=== PATIENT | female | born 1985 | race Caucasian/White ===

== ENCOUNTER 2017-01-11 10:41 | Outpatient (CLI) | payer MEDICAID ==
[~2017-01-11] VITALS: Ht 162.6 cm; Wt 57.3 kg
[2017-01-11 10:47] VITALS: BP 106/65; PULSE 84; RESP 16; Ht 162.6 cm; Wt 57.3 kg
--- NOTE | 2017-01-11 13:19 | CONS ---
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 She also has a small area of chronic mass in the right axillary region. Both of these areas appear to be benign to my examination and her history is relatively void of any concerning features. She is at relatively low risk for malignancy given her age and she also performs her own breast exams routinely and she does not report any abnormality in her own breast. Note that I deferred breast exam during this visit. I reviewed the wide differential of posterior neck masses and given the ultrasound findings, I believe that the next step in workup would be a CT scan of the neck and chest area with contrast. This would give us a good view of the area of the mass as well as evaluation of the right axilla. Should this poses any questions or concerning features, then the next step would be a fine needle aspiration of the area. We will order those in sequence and as needed. I plan on having the patient visit with us again after the above is done. I answered all the patient's questions to the best of my ability and I believe that she understood and wished to proceed with the plan. With above assessment I have recommended the followin. CT of the neck to include the upper chest area to evaluate both the right posterior neck mass as well as the right axillary mass. 2. Possible need for fine needle aspiration under ultrasound of the right posterior neck mass or the right axillary mass or both. 3. Follow up with us after above. 4. Follow up with primary care physician. Thank you again for allowing us to participate in the care of this very pleasant lady and I am certain her wonderful family. If there are any questions , please feel free to contact me at [phone]. UPDATED CLINICAL SUMMARY: A very pleasant and otherwise healthy 31-year-old young lady presenting with a small 3 x 6 x 10 mm subcutaneous hypoechoic nodule in the posterior right neck as seen on ultrasound of soft tissue of the neck done on 12/28/2016 with recent history of droopiness of the left face around the same time without associated fevers or chills, diagnosed as possible herpes type infection. COMORBIDITIES: 1. Recent herpes type droopiness of the left face diagnosed in the emergency department. 2. Right axillary lymph node enlargement that has been chronic. 3. Mild hypercholesterolemia (217 mg/dL on 01/04/2017). HISTORY OF PRESENT ILLNESS: The patient is a very pleasant and otherwise healthy 31-year-old lady with the above-mentioned comorbidities whom we were kindly asked to consult regarding management of her right posterior neck subcutaneous mass. Patient noted this mass in December and shortly after that had to be seen in the emergency department for droopiness of her left face. I do not have access to the full workup, but per patient's own report, the workup was negative and their diagnosis was possible HSV infection related. She does not report any pulsatile nature to the mass. No issues with her thyroid or parathyroid glands. No reported fevers or chills, change in appetite, changes in weight, or other concerning features and no history of major malignancy in the family. ALLERGIES: NO KNOWN DRUG ALLERGIES. MEDICATIONS AT HOME: None. SOCIAL HISTORY: The patient lives with her family. She reports occasional alcohol intake, no smoking and no intravenous drug use. FAMILY HISTORY: There is mention of stroke in the family, but no other major medical, surgical or oncologic problems noted. REVIEW OF SYSTEMS: Other than the above-mentioned, there are no other pertinent positives or pertinent negatives in a complete 14-point review of systems. PHYSICAL EXAMINATION: GENERAL: The patient appears to be a very pleasant lady of descent, appearing stated age, sitting in a chair comfortably and in no acute distress. BMI is 21.7. VITAL SIGNS: Temperature 97.8, blood pressure 106/65, pulse 84, respiratory rate 16, pulse oximetry 98% on room air. HEENT: Normocephalic and atraumatic. Extraocular muscles and hearing are grossly intact bilaterally and symmetrically. Sclerae are nonicteric. Oral cavity is clear; oral mucosa appeared to be pink and moist. Dentition: good. NECK: Examination of the posterior neck shows a small 1 cm or perhaps smaller area of mass that is soft and appears to be subcutaneous in the posterior neck region without associated pulsatile mass to it and no thrill over the area. No tenderness to palpation. The skin overlying the area appears to be pink and feels warm to touch. The rest of the posterior triangle as well as the anterior triangle on bilateral neck exam is completely benign and there is no other lymphadenopathy noted. The thyroid gland appears to be normal in size and texture and there is no movement of the posterior neck area mass with swallowing. CHEST: Rises symmetrically with each breath; patient is breathing comfortably. There are no audible wheezes, rales or rhonchi on the gross exam. Examination of the right axilla shows a small 1 cm or less area of a mass that appears to be nontender and soft. There is no erythema of the skin around it and no tenderness in the region. HEART: Pulse is regular and palpable on the right wrist. Capillary refill was normal. Carotid pulses are palpable bilaterally and symmetrically in the neck. EXTREMITIES: Lower extremities contain no pitting edema around the ankles bilaterally and symmetrically. ABDOMEN: Abdomen is soft, nontender and nondistended. There are no peritoneal signs or guarding. No evidence of ascites, organomegaly, caput medusae, engorged subcutaneous veins, or other abnormalities. SKIN: Appears to be pink and feels warm to touch. NEUROLOGIC: Awake, alert, and follows commands appropriately. LABORATORY DATA: Dated 01/03/2017: Electrolytes are normal. Creatinine 0.7, albumin 5.3. Liver function and injury parameters are normal. White blood cell count 5.2, hemoglobin 16.2, platelets 169, cholesterol 217. IMAGING: The patient's ultrasound was reviewed as above. Note that I personally reviewed the available on pertinent images and I agree in general with their overall reported findings. Dictated By: DARCY RAMIREZ/KENN Conf#: [id number] DID#: [id number] CC: Dao Pardo MD;*EndCC* MTDD
== END 2017-01-11 16:44 | disposition home or self-care (01) ==
LOC: HPC 10:41
PROVIDERS: ATTEND Transplant Surgery
DX: R29.810 Facial weakness (principal); R59.9 Enlarged lymph nodes, unspecified; E78.00 Pure hypercholesterolemia, unspecified
CPT/HCPCS: G0463

== ENCOUNTER → 2017-01-12 | Outpatient (CLI) | payer MEDICAID ==
[~2017-01-12] MED LIST: IOHEXOL 300MG/ML 150 ML BTL ONE; SOD CHLORIDE 0.9% 100 ML ONE
--- NOTE | 2017-01-13 16:34 | RADRPT ---
PROCEDURE: CT Neck with contrast CLINICAL INDICATION: Right neck mass. TECHNIQUE: CT of the neck was performed following the intravenous administration of 85 cc of Omnip aque-300 IV Contrast. Axial images were obtained through the neck with multiplanar reformatted image s generated from the axial acquired data. The administered radiation dose was CTDI vol = 6.57, 9.37 mGy, DLP = 182.86, 376.37 a mGy-cm. One or more of the following dose reduction techniques were use d: Automated exposure control, Adjustment of the mA and/or kV according to patient size, or Use of i terative reconstruction technique. COMPARISON: There are no similar studies submitted for comparison. FINDINGS: No skin marker is noted. The right axillary region is not imaged. SKULL: The visualized portions of the brain are grossly unremarkable.The visualized orbits are unrem arkable.The visualized paranasal sinuses are well aerated.The bilateral mastoid air cells are within normal limits. PAROTID GLANDS: Unremarkable. SUBMANDIBULAR GLANDS: Unremarkable. THYROID GLAND: Unremarkable. VASCULATURE: The bilateral vascular structures are patent. LYMPH NODES: Multiple small lymph nodes are identified in the neck in levels I-V which are not patho logically enlarged or necrotic. The lymph nodes are relatively bilateral and symmetric in distributi on. AERODIGESTIVE TRACT: There is streak artifact from dental hardware limiting evaluation of the oral c avity.No primary aerodigestive tract lesion is identified.There are coarse calcifications within the bilateral palatine tonsils suggesting prior infectious/inflammatory etiologies. THORAX: The lung apices are unremarkable. OSSEOUS STRUCTURES: No destructive lytic or blastic osseous lesion is identified.There is reversal o f the cervical lordosis suggesting muscle spasm. 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 IMPRESSION: 1. No mass or fluid collection. 2. No cervical adenopathy. Further findings as detailed above. RPTAT: PP .Dedrick Dash MD, Date Time Electronically viewed and signed by .Dedrick Dash MD, MD on 01/13/2017 16:34 .F/
--- NOTE | 2017-01-13 16:56 | RADRPT ---
PROCEDURE: CT Chest with contrast. CLINICAL INDICATION: Right posterior axillary mass. TECHNIQUE: CT scan of the chest with contrast was performed following the uncomplicated intravenou s administration of 85 cc of Omnipaque-300. Coronal and sagittal reformatted images were obtained f rom the axial source images. Images were reviewed on a high-resolution PACS workstation. CTDIvol (mG y): 6.57, 9.37; Total Exam DLP (mGy-cm): 559.23. One or more of the following dose reduction techniques were utilized: - Automated exposure control. - Adjustment of the mA and/or kV according to patient size. - Use of iterative reconstruction technique. COMPARISON: None. FINDINGS: Limited imaging of the lower neck is unremarkable. The heart is not enlarged. There is no pericardial effusion. There is no mediastinal, hilar or axi llary lymphadenopathy. Scattered few tiny calcified mediastinal and right hilar lymph nodes are pres ent and most compatible with old granulomatous disease. The thoracic aorta is normal in caliber. Th e pulmonary arteries are not enlarged. There is a tiny calcified granuloma of the left lower lobe. There is no pulmonary consolidation, pl eural effusion or concerning pulmonary nodule. The tracheobronchial tree is normal in caliber. Limited imaging of the upper abdomen is unremarkable. Skeletal structures are unremarkable. Chest wall soft tissues are unremarkable and symmetric. Ther e is mild symmetric skin thickening of the bilateral axilla. IMPRESSION: No evidence of mass, lymphadenopathy or acute inflammatory process of the chest. Specifically, no ev idence of right axillary or chest wall mass. RPTAT: [facility]ST .Kristie Salcedo MD, Date Time Electronically viewed and signed by .Kristie Salcedo MD, MD on 01/13/2017 16:56 .T/
== END | disposition home or self-care (01) ==
LOC: C/S 09:49
PROVIDERS: ATTEND Transplant Surgery
DX: R22.1 Localized swelling, mass and lump, neck (principal); R22.9 Localized swelling, mass and lump, unspecified
CPT/HCPCS: 70490; 71260; Q9967; Z7610

== ENCOUNTER 2017-01-18 10:47 | Outpatient (CLI) | payer MEDICAID ==
[~2017-01-18] VITALS: Ht 162.6 cm; Wt 58.2 kg
[2017-01-18 10:56] VITALS: BP 112/66; PULSE 85; RESP 16; Ht 162.6 cm; Wt 58.2 kg
--- NOTE | 2017-01-18 11:26 | PN ---
Date/Time of Note Date/Time of Note DATE: 01/18/17 TIME: 11:19 Assessment/Plan Assessment/Plan Assessment/Plan [facility] Progress Note Date of Service: 01/18/17 Today's Impression & Plan: Overall doing well. Negative neck and chest CT results were reviewed and patient was reassured. No indication for acute surgical intervention. Answered all questions. With above assessment, I've recommended the following for today: 1. F/u with PCP 2. F/u with us prn 3. Monitor right neck and axillary lymph node areas and call if any change Thank you again for your great care of this very pleasant patient and wonderful family. If there are any questions, please feel free to call me at [phone]. Disclaimer: Inadvertent spelling or grammatical errors are likely due to EHR/ dictation software use and do not reflect on the overall quality of patient care. Updated Clinical Summary: A very pleasant and otherwise healthy 31-year-old young lady presenting with a small 3 x 6 x 10 mm subcutaneous hypoechoic nodule in the posterior right neck as seen on ultrasound of soft tissue of the neck done on 12/28/2016 with recent history of droopiness of the left face around the same time without associated fevers or chills, diagnosed as possible herpes type infection. Neck and chest CT 01/12/17 with contrast showed no lymphadenopathy or concerning features. COMORBIDITIES: 1. Recent herpes type droopiness of the left face diagnosed in the emergency department. 2. Right axillary lymph node enlargement that has been chronic. 3. Mild hypercholesterolemia (217 mg/dL on 01/04/2017). Subjective: No major events or complaints; no pain or fevers; no n/v/d; no sob or cp; + flatus; + BM and normal; + activity Objective: Vitals: See below Exam: GENERAL: On exam, the patient was sitting in a chair and appeared to be comfortable and in no acute distress. NECK: Soft and small subcutaneous sub centimeter mass unchanged from prior visit. SKIN: Skin appears to be pink and feels warm to touch. NEUROLOGIC: Patient is awake, alert, and follows commands appropriately. Exam/Review of Systems Vital Signs Vitals Vital Signs Date Time Temp Pulse Resp B/P Pulse Ox O2 Delivery O2 Flow Rate FiO2 01/18/17 10:56 98.3 85 16 112/66 99 Room Air DARCY PALOMINO M.D. January 18, 2017 11:26
== END 2017-01-18 16:24 | disposition home or self-care (01) ==
LOC: HPC 10:47
PROVIDERS: ATTEND Transplant Surgery
DX: B00.9 Herpesviral infection, unspecified (principal); R29.810 Facial weakness; R59.0 Localized enlarged lymph nodes; E78.00 Pure hypercholesterolemia, unspecified
CPT/HCPCS: G0463